=== PATIENT | female | born 1950 | race Caucasian/White ===

== ENCOUNTER → 2017-10-04 | Outpatient (CLI) | payer MEDICARE, BC ==
[~2017-10-04] MED LIST: CHOL200074 PO; ESTR42.59 VG; FLAX100053 PO; MULT1TAB54 PO; [UNRECOGNIZED DRUG - CODE] PO
--- NOTE | 2017-10-04 15:53 | RADIOLOGY IMAGING REPORT ---
FACILITY: [facility] - [place] PATIENT NAME: Lianne Clinton : 1950 MR: [id number] V: [id number] EXAM DATE: ORDERING PHYSICIAN: FRANCES CARTAGENA TECHNOLOGIST: Location: [facility] - [place] Patient: Lianne Clinton : 1950 Visit/Account:[id number] Date of Sevice: 10/04/2017 THYROID HISTORY: Bilateral thyroid nodules COMPARISON: April 10, 2017 FINDINGS: SIZE: Normal. Right lobe: 4.2 x 1.2 x 1.1 cm Left lobe: 4.6 x 1 x 1 cm Isthmus: 2 mm PARENCHYMA: Heterogeneous NODULES: Right lobe: * In the mid right lobe there is a well-circumscribed 7 mm hypoechoic nodule that has remained stabl e. * In the inferior right lobe there is a 9 mm relatively well-circumscribed hypoechoic nodule also gutierrez s remained relatively unchanged. Left lobe: * In the inferior left lobe there is a 1 cm in diameter well-circumscribed hypoechoic nodule actuall y appears slightly smaller when compared to the prior study. * The slightly complex nodule in the mid left lobe now measures approximately 1.2 cm in diameter rel atively unchanged in size. There are additional smaller nodules seen in the left lobe Isthmus: * None discrete. VASCULARITY: Within normal limits. ADDITIONAL FINDINGS: None. IMPRESSION: There are bilateral thyroid nodules as described. Most appear unchanged. The inferior left thyroid nodule appears slightly decreased in size. The mid and inferior left thyroid nodules have been previ ously biopsied. Correlation with biopsy history needed REFERENCE: 2015 [place] [employer] Management Guidelines for Adult Patients with Thyroid Nodules and D ifferentiated Thyroid Cancer: The [place] [employer] Guidelines Task Force on Thyroid Nodul es and Differentiated Thyroid Cancer. SONOGRAPHIC PATTERNS: * Benign: Purely cystic nodules (no solid component); estimated risk of malignancy <1 percent; no bi opsy recommended. * Very Low Suspicion: Spongiform or partially cystic nodules without any of the sonographic features described in low, intermediate, or high suspicion patterns; estimated risk of malignancy <3 percent; consider FNA at > 2 cm (Observation without FNA is also a reasonable option). * Low Suspicion: Isoechoic or hyperechoic solid nodule, or partially cystic nodule with eccentric so lid areas, without microcalcification, irregular margin or ETE (extra-thyroidal extension), or taller than wide shape; estimated risk of malignancy 5-10 percent; recommend FNA at >1.5 cm. * Intermediate Suspicion: Hypoechoic solid nodule with smooth margins without microcalcifications, E TE (extra-thyroidal extension), or taller than wide shape; estimated risk of malignancy 10-20 percent ; recommend FNA at > 1 cm. * High Suspicion: Solid hypoechoic nodule or solid hypoechoic component of a partially cystic nodule with one or more of the following features: irregular margins (infiltrative, microlobulated), microc alcifications, taller than wide shape, rim calcifications with small extrusive soft tissue component, evidence of ETE (extra-thyroidal extension); estimated risk of malignancy >70-90 percent; recommend FNA at > 1 cm. NOTES: * Although a sonographically suspicious subcentimeter thyroid nodule without evidence of extrathyroi murray extension or sonographically suspicious lymph nodes may be observed with close sonographic follow -up rather than pursuing immediate FNA, patient age and preference may modify decision-making. A > 50% interval increase in nodule volume and/or development of new suspicious sonographic features are felt to be a valid reasons for potential re-aspiration of a nodule previously shown to have benig n FNA cytology. Report Dictated By: Toya Echevarria MD at 10/04/2017 3:41 PM Report E-Signed By: Toya Echevarria MD at 10/04/2017 3:49 PM WSN:[id number]
== END ==
LOC: US 01:16
PROVIDERS: ATTEND Family Medicine
DX: E04.2 Nontoxic multinodular goiter (principal)
CPT/HCPCS: 76536

== ENCOUNTER → 2018-01-31 | Outpatient (CLI) | payer MEDICARE, BC ==
--- NOTE | 2018-02-01 15:46 | RADIOLOGY IMAGING REPORT ---
FACILITY: [facility] PATIENT NAME: VERONICA TREVINO : [id number] MR: [id number] V: [id number] EXAM DATE: [id number] ORDERING PHYSICIAN: FRANCES CARTAGENA TECHNOLOGIST: Payton Rush PROCEDURE:BILATERAL DIGITAL SCREENING MAMMOGRAM WITH CAD ASSISTED INTERPRETATION & 3D TOMOSYNTHESIS COMPARISON:Prior mammograms dated 01/16/17, 01/13/16, 01/05/15, 01/01/14, 12/12/12, 12/12/11 INDICATIONS:screening FINDINGS: Moderately dense fibroglandular tissue is seen throughout the breasts. The parenchymal pattern has remained stable allowing for difference in mammographic technique & patient positioning. There is no evidence of malignant appearing mass, malignant appearing calcification or other secondary sign of malignancy in either breast. DIAGNOSTIC CATEGORY 1--NEGATIVE. RECOMMENDATIONS: ROUTINE MAMMOGRAM AND CLINICAL EVALUATION. IMPRESSION: BIRADS 1: Negative. No significant abnormality is seen. Dictated by: Toya Echevarria M.D. on 01/31/2018 at 15:59 Transcribed by: NATHAN on 02/01/2018 at 8:11 Approved by: Toya Echevarria M.D. on 02/01/2018 at 15:45 [facility]
== END ==
LOC: MAMO 04:16
PROVIDERS: ATTEND Family Medicine
DX: Z12.31 Encounter for screening mammogram for malignant neoplasm of breast (principal)
CPT/HCPCS: 77063; 77067

== ENCOUNTER → 2018-05-01 | Outpatient (CLI) | payer MEDICARE, BC ==
[~2018-05-01] MED LIST changes: +OMEP40CA48 PO; +POLY17PO25 PO; +RANI-325 PO
== END ==
LOC: LAB 14:08
PROVIDERS: ATTEND Otolaryngology
DX: J30.9 Allergic rhinitis, unspecified (principal)
CPT/HCPCS: 36415; 86003

== ENCOUNTER → 2019-03-07 | Outpatient (CLI) | payer MEDICARE, BC ==
--- NOTE | 2019-03-10 13:48 | RADIOLOGY IMAGING REPORT ---
FACILITY: [facility] PATIENT NAME: VERONICA TREVINO : [id number] MR: [id number] V: [id number] EXAM DATE: [id number] ORDERING PHYSICIAN: FRANCES CARTAGENA TECHNOLOGIST: Payton Rush PROCEDURE: BILATERAL DIGITAL SCREENING MAMMOGRAM WITH CAD ASSISTED INTERPRETATION & 3D TOMOSYNTHESIS REASON FOR STUDY: Screening. COMPARISON: 01/31/2018. VIEWS OBTAINED: 2D & 3D full field CC & MLO. BREAST DENSITY: There are scattered areas of fibroglandular density. MAMMOGRAM FINDINGS: There is no suspicious mass, calcification, or architectural distortion. IMPRESSION: BIRADS 1: Negative. DIAGNOSTIC CATEGORY 1--NEGATIVE. RECOMMENDATIONS: ROUTINE MAMMOGRAM AND CLINICAL EVALUATION. Dictated by: Michael Morillo M.D. on 03/10/2019 at 8:33 Transcribed by: CLAYTON on 03/10/2019 at 9:33 Approved by: Michael Morillo M.D. on 03/10/2019 at 13:46 [facility]
== END ==
LOC: MAMO 01:40
PROVIDERS: ATTEND Family Medicine
DX: Z12.31 Encounter for screening mammogram for malignant neoplasm of breast (principal); Z80.3 Family history of malignant neoplasm of breast
CPT/HCPCS: 77063; 77067